=== PATIENT | female | born 2005 | race Caucasian/White ===

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

== ENCOUNTER 2023-01-09 20:45 | Emergency (ER) | payer SELFPAY ==
[2023-01-09 21:00] VITALS: BP 119/75; PULSE 79
== END 2023-01-09 22:16 | disposition home or self-care (01) ==
LOC: JP.ED 20:45
DX: M25.562 Pain in left knee (principal); Z88.0 Allergy status to penicillin; Z88.7 Allergy status to serum and vaccine; Z91.010 Allergy to peanuts; Z91.011 Allergy to milk products; Z79.899 Other long term (current) drug therapy; W22.8XXA Striking against or struck by other objects, initial encounter
CPT/HCPCS: 73562-26-LT; 73562-LT; 99283

== ENCOUNTER 2023-04-09 13:22 | Emergency (ER) | payer SELFPAY ==
[2023-04-09 15:11] VITALS: BP 116/83; PULSE 83
== END 2023-04-09 15:57 | disposition hospice, inpatient (51) ==
LOC: JP.ED 13:22
DX: Z32.02 Encounter for pregnancy test, result negative (principal); J45.909 Unspecified asthma, uncomplicated; Z88.0 Allergy status to penicillin; Z88.7 Allergy status to serum and vaccine; Z91.010 Allergy to peanuts; Z91.011 Allergy to milk products; Z91.09 Other allergy status, other than to drugs and biological substances; Z88.8 Allergy status to other drugs, medicaments and biological substances
CPT/HCPCS: 81025; 99282; 99283

== ENCOUNTER 2023-04-23 08:03 | Emergency (ER) | payer SELFPAY ==
[2023-04-23 10:03] LABS: BASOPHILS ABSOLUTE AUTO 0.09 K/uL (0.00-0.10); EOSINOPHILS ABSOLUTE AUTO 0.07 K/uL (0.00-0.40); EOSINOPHILS PERCENT AUTO 0.8 % (0.0-5.4); HEMATOCRIT 40.6 % (34.3-46.0); HEMOGLOBIN 14.6 g/dL (11.2-15.5); IMMATURE GRAN PERCENT AUTO 0.2 % (0.0-0.7); LYMPHOCYTES ABSOLUTE AUTO 0.77 K/uL (0.8-3.3); LYMPHOCYTES PERCENT AUTO 8.3 % (11.4-47.7); MEAN CORPUSCULAR HEMOGLOBIN 32.8 pg (31.6-35.5); MEAN CORPUSCULAR VOLUME 91.2 fL (81.4-99.0); MONOCYTES PERCENT AUTO 3.2 % (3.3-12.6); NEUTROPHILS ABSOLUTE AUTO 8.02 K/uL (1.0-7.6); NEUTROPHILS PERCENT AUTO 86.5 % (40.0-78.1); PLATELET COUNT,PLT 206 K/uL (130-375); RED BLOOD CELL COUNT 4.45 M/uL (3.77-5.24); WHITE BLOOD CELL COUNT,WBC 9.3 K/uL (3.2-11.0)
[2023-04-23 10:04] LABS: IMMATURE GRAN ABSOLUTE AUTO 0.02 K/uL (0.00-0.23)
[2023-04-23 10:16] VITALS: BP 104/60; PULSE 106
[2023-04-23 10:23] LABS: A/G RATIO 1.6 (1.2-2.2); ALANINE AMINOTRANSFERASE,ALT 20 U/L (12-78); ALBUMIN 4.3 g/dL (3.4-5.0); ALKALINE PHOSPHATASE 52 U/L (46-116); ANION GAP 14.5 mmol/L (5.0-14.0); ASPARTATE AMNIOTRANSFERASE,AST 17 U/L (15-37); BILIRUBIN TOTAL 1.3 mg/dL (0.2-1.0); BLOOD UREA NITROGEN,BUN 13 mg/dL (7-18); C-REACTIVE PROTEIN 0.16 mg/dL (0.0-0.3); CALCIUM 8.7 mg/dL (8.5-10.1); CARBON DIOXIDE,CO2 23 mmol/L (21-32); CHLORIDE,CL 104 mmol/L (100-108); CREATININE 0.8 mg/dL (0.6-1.0); EST CRCL DRUG DOSING (CG) 83.54 mL/min; ESTIMATED GFR 108 mL/min (>60); GLUCOSE RANDOM 73 mg/dL (74-106); POTASSIUM,K 3.7 mmol/L (3.6-5.2); SODIUM,NA 141 mmol/L (140-148)
[2023-04-23] MEDS ORDERED: Sodium Chloride 0.9% 1,000 ML IV ONE (10:59)
== END 2023-04-23 12:50 | disposition home or self-care (01) ==
LOC: JP.ED 08:03
DX: E86.0 Dehydration (principal); J45.909 Unspecified asthma, uncomplicated; Z88.0 Allergy status to penicillin; Z88.8 Allergy status to other drugs, medicaments and biological substances; Z88.7 Allergy status to serum and vaccine; Z91.010 Allergy to peanuts; Z91.011 Allergy to milk products; Z91.018 Allergy to other foods; Z79.51 Long term (current) use of inhaled steroids
CPT/HCPCS: 10060; 36415; 80053; 83605; 85025; 86140; 93005; 96360; 99285; J7030

== ENCOUNTER 2023-04-29 20:32 | Emergency (ER) | payer SELFPAY ==
[2023-04-29 20:57] VITALS: BP 112/74; PULSE 70
== END 2023-04-29 22:51 | disposition left against medical advice (07) ==
LOC: JP.ED 20:32
DX: Z53.21 Procedure and treatment not carried out due to patient leaving prior to being seen by health care provider (principal)

== ENCOUNTER 2023-06-11 17:35 | Emergency (ER) | payer SELFPAY ==
[2023-06-11] MEDS ORDERED: Ondansetron 4 MG Tab.DIS PO ONE (17:58)
[2023-06-11] MEDS ORDERED: Ibuprofen 600 MG Tab PO ONE (18:07)
[2023-06-11 18:08] LABS: BASOPHILS ABSOLUTE AUTO 0.11 K/uL (0.00-0.10); BASOPHILS PERCENT AUTO 0.9 % (0.1-1.3); EOSINOPHILS PERCENT AUTO 3.2 % (0.0-5.4); HEMATOCRIT 43.1 % (34.3-46.0); HEMOGLOBIN 15.3 g/dL (11.2-15.5); IMMATURE GRAN ABSOLUTE AUTO 0.03 K/uL (0.00-0.23); IMMATURE GRAN PERCENT AUTO 0.2 % (0.0-0.7); LYMPHOCYTES ABSOLUTE AUTO 1.79 K/uL (0.8-3.3); LYMPHOCYTES PERCENT AUTO 14.4 % (11.4-47.7); MEAN CORPUSCULAR HEMOGLOBIN 32.9 pg (31.6-35.5); MEAN CORPUSCULAR HGB CONC 35.5 g/dL (31.6-35.5); MEAN CORPUSCULAR VOLUME 92.7 fL (81.4-99.0); MONOCYTES ABSOLUTE AUTO 1.01 K/uL (0.20-0.90); MONOCYTES PERCENT AUTO 8.1 % (3.3-12.6); NEUTROPHILS ABSOLUTE AUTO 9.13 K/uL (1.0-7.6); NEUTROPHILS PERCENT AUTO 73.2 % (40.0-78.1); PLATELET COUNT,PLT 220 K/uL (130-375); RED BLOOD CELL COUNT 4.65 M/uL (3.77-5.24); WHITE BLOOD CELL COUNT,WBC 12.5 K/uL (3.2-11.0)
[2023-06-11 18:10] VITALS: BP 112/76; PULSE 104
[2023-06-11 18:20] LABS: APPEARANCE,URINE CLOUDY (CLEAR); BILIRUBIN,URINE NEGATIVE (NEGATIVE); COLOR,URINE YELLOW (YELLOW); GLUCOSE,URINE NEGATIVE (NEGATIVE); KETONES,URINE NEGATIVE (NEGATIVE); LEUKOCYTE ESTERASE,URINE SMALL (NEGATIVE); NITRITE,URINE NEGATIVE (NEGATIVE); OCCULT BLOOD,URINE LARGE (NEGATIVE); PROTEIN,URINE 100 mg/dL (NEGATIVE); UROBILINOGEN,URINE 0.2 EU/dL (0.2-1.0)
[2023-06-11 18:21] LABS: AMORPHOUS SEDIMENT,URINE NOT SEEN; BACTERIA,URINE FEW; EPITHELIAL CELLS,URINE RARE; MUCUS,URINE FEW; RBC,URINE >100 (0-5)
[2023-06-11 18:23] LABS: CALCIUM 8.4 mg/dL (8.5-10.1); CREATININE 0.7 mg/dL (0.6-1.0); EST CRCL DRUG DOSING (CG) 95.52 mL/min; POTASSIUM,K 3.5 mmol/L (3.6-5.2)
[2023-06-11 18:24] LABS: ANION GAP 11.5 mmol/L (5.0-14.0)
== END 2023-06-11 18:36 | disposition home or self-care (01) ==
LOC: JP.ED 17:35
DX: N30.01 Acute cystitis with hematuria (principal); Z88.0 Allergy status to penicillin; Z91.011 Allergy to milk products; Z91.010 Allergy to peanuts; Z88.8 Allergy status to other drugs, medicaments and biological substances; Z88.7 Allergy status to serum and vaccine; Z91.048 Other nonmedicinal substance allergy status; Z79.899 Other long term (current) drug therapy
CPT/HCPCS: 36415; 80048; 81001; 81025; 85025; 87086; 99284; Q0162

== ENCOUNTER 2023-06-21 15:42 | Emergency (ER) | payer SELFPAY ==
[2023-06-21 17:29] VITALS: BP 116/72; PULSE 102
== END 2023-06-21 17:56 | disposition home or self-care (01) ==
LOC: JP.ED 15:42
DX: K02.62 Dental caries on smooth surface penetrating into dentin (principal); Z88.0 Allergy status to penicillin; Z91.010 Allergy to peanuts; Z91.011 Allergy to milk products; Z88.7 Allergy status to serum and vaccine; Z88.8 Allergy status to other drugs, medicaments and biological substances; Z91.048 Other nonmedicinal substance allergy status; Z79.899 Other long term (current) drug therapy
CPT/HCPCS: 99282

== ENCOUNTER 2023-07-12 15:31 | Emergency (ER) | payer MEDICAID ==
[2023-07-12 15:44] VITALS: BP 114/80; PULSE 69
[2023-07-12 16:49] LABS: APPEARANCE,URINE CLOUDY (CLEAR); BILIRUBIN,URINE NEGATIVE (NEGATIVE); COLOR,URINE YELLOW (YELLOW); GLUCOSE,URINE NEGATIVE (NEGATIVE); KETONES,URINE NEGATIVE (NEGATIVE); LEUKOCYTE ESTERASE,URINE SMALL (NEGATIVE); NITRITE,URINE NEGATIVE (NEGATIVE); OCCULT BLOOD,URINE SMALL (NEGATIVE); PROTEIN,URINE 30 mg/dL (NEGATIVE); UROBILINOGEN,URINE 0.2 EU/dL (0.2-1.0)
[2023-07-12 16:57] LABS: RBC,URINE 0-5 (0-5); WBC,URINE 75-100 (0-5)
[2023-07-12 16:58] LABS: AMORPHOUS SEDIMENT,URINE RARE; BACTERIA,URINE FEW; EPITHELIAL CELLS,URINE FEW; MUCUS,URINE NOT SEEN
== END 2023-07-12 17:55 | disposition home or self-care (01) ==
LOC: JP.ED 15:31
DX: O99.891 Other specified diseases and conditions complicating pregnancy (principal); R82.71 Bacteriuria; R82.81 Pyuria; O99.511 Diseases of the respiratory system complicating pregnancy, first trimester; J45.909 Unspecified asthma, uncomplicated; Z88.0 Allergy status to penicillin; Z88.8 Allergy status to other drugs, medicaments and biological substances; Z88.7 Allergy status to serum and vaccine; Z91.010 Allergy to peanuts; Z91.018 Allergy to other foods; Z79.899 Other long term (current) drug therapy; Z3A.01 Less than 8 weeks gestation of pregnancy
CPT/HCPCS: 81001; 87086; 99284

== ENCOUNTER 2023-08-01 10:44 | Emergency (ER) | payer MEDICAID ==
[2023-08-01 11:09] VITALS: BP 132/72; PULSE 124
[2023-08-01 11:47] LABS: APPEARANCE,URINE CLOUDY (CLEAR); BILIRUBIN,URINE SMALL (NEGATIVE); COLOR,URINE YELLOW (YELLOW); GLUCOSE,URINE NEGATIVE (NEGATIVE); KETONES,URINE TRACE mg/dL (NEGATIVE); LEUKOCYTE ESTERASE,URINE SMALL (NEGATIVE); NITRITE,URINE NEGATIVE (NEGATIVE); OCCULT BLOOD,URINE NEGATIVE (NEGATIVE); PH,URINE 7.5 (5.0-8.0); PROTEIN,URINE 30 mg/dL (NEGATIVE)
[2023-08-01 11:54] LABS: RBC,URINE 0-5 (0-5); WBC,URINE 0-5 (0-5)
[2023-08-01 11:55] LABS: AMORPHOUS SEDIMENT,URINE MODERATE; BACTERIA,URINE MODERATE; EPITHELIAL CELLS,URINE MANY; MUCUS,URINE MANY
== END 2023-08-01 12:16 | disposition home or self-care (01) ==
LOC: JP.ED 10:44
DX: O99.891 Other specified diseases and conditions complicating pregnancy (principal); R31.9 Hematuria, unspecified; O99.511 Diseases of the respiratory system complicating pregnancy, first trimester; J45.909 Unspecified asthma, uncomplicated; Z79.899 Other long term (current) drug therapy; Z3A.01 Less than 8 weeks gestation of pregnancy; Z88.1 Allergy status to other antibiotic agents; Z91.010 Allergy to peanuts; Z88.7 Allergy status to serum and vaccine; Z88.8 Allergy status to other drugs, medicaments and biological substances; Z91.011 Allergy to milk products; Z88.9 Allergy status to unspecified drugs, medicaments and biological substances; Z91.018 Allergy to other foods
CPT/HCPCS: 81001; 81025; 87086; 99283

== ENCOUNTER 2023-08-16 16:50 | Emergency (ER) | payer SELFPAY ==
[2023-08-16 16:59] VITALS: BP 120/50; PULSE 111
== END 2023-08-16 18:43 | disposition home or self-care (01) ==
LOC: JP.ED 16:50
DX: H66.92 Otitis media, unspecified, left ear (principal); O21.9 Vomiting of pregnancy, unspecified; Z3A.09 9 weeks gestation of pregnancy; Z88.1 Allergy status to other antibiotic agents; Z88.8 Allergy status to other drugs, medicaments and biological substances; Z91.011 Allergy to milk products; Z91.010 Allergy to peanuts; Z91.018 Allergy to other foods
CPT/HCPCS: 99282

== ENCOUNTER 2023-11-14 16:40 | Emergency (ER) | payer MEDICAID ==
[2023-11-14 17:10] VITALS: BP 117/69; PULSE 87
[2023-11-14 17:33] LABS: BASOPHILS ABSOLUTE AUTO 0.07 K/uL (0.00-0.10); BASOPHILS PERCENT AUTO 0.6 % (0.1-1.3); EOSINOPHILS ABSOLUTE AUTO 0.87 K/uL (0.00-0.40); EOSINOPHILS PERCENT AUTO 7.3 % (0.0-5.4); HEMATOCRIT 34.6 % (34.3-46.0); HEMOGLOBIN 12.4 g/dL (11.2-15.5); IMMATURE GRAN ABSOLUTE AUTO 0.07 K/uL (0.00-0.23); IMMATURE GRAN PERCENT AUTO 0.6 % (0.0-0.7); LYMPHOCYTES ABSOLUTE AUTO 1.52 K/uL (0.8-3.3); LYMPHOCYTES PERCENT AUTO 12.7 % (11.4-47.7); MEAN CORPUSCULAR HEMOGLOBIN 33.7 pg (31.6-35.5); MEAN CORPUSCULAR HGB CONC 35.8 g/dL (31.6-35.5); MONOCYTES ABSOLUTE AUTO 0.85 K/uL (0.20-0.90); MONOCYTES PERCENT AUTO 7.1 % (3.3-12.6); NEUTROPHILS ABSOLUTE AUTO 8.56 K/uL (1.0-7.6); NEUTROPHILS PERCENT AUTO 71.7 % (40.0-78.1); PLATELET COUNT,PLT 180 K/uL (130-375); RED BLOOD CELL COUNT 3.68 M/uL (3.77-5.24); WHITE BLOOD CELL COUNT,WBC 11.9 K/uL (3.2-11.0)
[2023-11-14 18:17] LABS: CORONAVIRUS COVID-19 NAA NEGATIVE (NEGATIVE); INFLUENZA A NAA NEGATIVE (NEGATIVE); INFLUENZA B NAA NEGATIVE (NEGATIVE); RESPIRATORY SYNCYTIAL VIR NAA NEGATIVE (NEGATIVE)
[2023-11-14 18:19] LABS: ALANINE AMINOTRANSFERASE,ALT 12 U/L (12-78); ALBUMIN 3.1 g/dL (3.4-5.0); ALKALINE PHOSPHATASE 57 U/L (46-116); ANION GAP 12.5 mmol/L (5.0-14.0); ASPARTATE AMNIOTRANSFERASE,AST 13 U/L (15-37); BILIRUBIN TOTAL 0.3 mg/dL (0.2-1.0); BLOOD UREA NITROGEN,BUN 5 mg/dL (7-18); CALCIUM 8.5 mg/dL (8.5-10.1); CARBON DIOXIDE,CO2 26 mmol/L (21-32); CHLORIDE,CL 104 mmol/L (100-108); CREATININE 0.5 mg/dL (0.6-1.0); EST CRCL DRUG DOSING (CG) 151.58 mL/min; ESTIMATED GFR 138 mL/min (>60); GLUCOSE RANDOM 88 mg/dL (74-106); HCG QUANTITATIVE 13502 mIU/mL (0-6); POTASSIUM,K 3.5 mmol/L (3.6-5.2); PROTEIN TOTAL,TP 6.3 g/dL (6.4-8.2); SODIUM,NA 139 mmol/L (140-148)
[2023-11-14 19:21] LABS: APPEARANCE,URINE CLOUDY (CLEAR); BILIRUBIN,URINE NEGATIVE (NEGATIVE); COLOR,URINE YELLOW (YELLOW); GLUCOSE,URINE NEGATIVE (NEGATIVE); KETONES,URINE NEGATIVE (NEGATIVE); LEUKOCYTE ESTERASE,URINE MODERATE (NEGATIVE); NITRITE,URINE NEGATIVE (NEGATIVE); OCCULT BLOOD,URINE TRACE-INTACT (NEGATIVE); PROTEIN,URINE NEGATIVE (NEGATIVE); UROBILINOGEN,URINE 0.2 EU/dL (0.2-1.0)
[2023-11-14 19:23] LABS: AMORPHOUS SEDIMENT,URINE NOT SEEN; BACTERIA,URINE MANY; EPITHELIAL CELLS,URINE MANY; MUCUS,URINE FEW; RBC,URINE 0-5 (0-5); WBC,URINE 20-30 (0-5)
== END 2023-11-14 19:38 | disposition home or self-care (01) ==
LOC: JP.ED 16:40
DX: O23.42 Unspecified infection of urinary tract in pregnancy, second trimester (principal); N30.00 Acute cystitis without hematuria; Z88.8 Allergy status to other drugs, medicaments and biological substances; Z88.7 Allergy status to serum and vaccine; Z91.018 Allergy to other foods; Z91.048 Other nonmedicinal substance allergy status; Z3A.22 22 weeks gestation of pregnancy; Z88.0 Allergy status to penicillin; Z91.010 Allergy to peanuts; Z91.011 Allergy to milk products
CPT/HCPCS: 0241U; 36415; 76815; 80053; 81001; 83605; 83690; 84702; 85025; 99284

== ENCOUNTER 2023-11-17 18:38 | Emergency (ER) | payer MEDICAID ==
[2023-11-17 20:12] VITALS: BP 123/75; PULSE 97
== END 2023-11-17 21:35 | disposition home or self-care (01) ==
LOC: JP.ED 18:38
DX: O23.42 Unspecified infection of urinary tract in pregnancy, second trimester (principal); B96.89 Other specified bacterial agents as the cause of diseases classified elsewhere; N39.0 Urinary tract infection, site not specified; Z3A.22 22 weeks gestation of pregnancy; Z88.0 Allergy status to penicillin; Z91.010 Allergy to peanuts; Z88.7 Allergy status to serum and vaccine; Z88.8 Allergy status to other drugs, medicaments and biological substances; Z91.011 Allergy to milk products; Z91.048 Other nonmedicinal substance allergy status; Z79.899 Other long term (current) drug therapy
CPT/HCPCS: 87086; 87210; 99284

== ENCOUNTER 2023-11-25 13:30 | Emergency (ER) | payer MEDICAID ==
[2023-11-25 14:27] VITALS: BP 120/68; PULSE 107
[2023-11-25 15:00] LABS: APPEARANCE,URINE TURBID (CLEAR); BILIRUBIN,URINE NEGATIVE (NEGATIVE); COLOR,URINE YELLOW (YELLOW); GLUCOSE,URINE NEGATIVE (NEGATIVE); KETONES,URINE NEGATIVE (NEGATIVE); LEUKOCYTE ESTERASE,URINE MODERATE (NEGATIVE); NITRITE,URINE NEGATIVE (NEGATIVE); OCCULT BLOOD,URINE NEGATIVE (NEGATIVE); PROTEIN,URINE NEGATIVE (NEGATIVE)
[2023-11-25 15:05] LABS: AMORPHOUS SEDIMENT,URINE MODERATE; BACTERIA,URINE MANY; EPITHELIAL CELLS,URINE MANY; MUCUS,URINE RARE; RBC,URINE 0-5 (0-5); WBC,URINE 20-30 (0-5)
== END 2023-11-25 15:50 | disposition home or self-care (01) ==
LOC: JP.ED 13:30
DX: O23.12 Infections of bladder in pregnancy, second trimester (principal); N30.00 Acute cystitis without hematuria; Z3A.23 23 weeks gestation of pregnancy; Z86.19 Personal history of other infectious and parasitic diseases; Z88.0 Allergy status to penicillin; Z88.8 Allergy status to other drugs, medicaments and biological substances; Z88.7 Allergy status to serum and vaccine; Z91.010 Allergy to peanuts; Z91.048 Other nonmedicinal substance allergy status; Z91.011 Allergy to milk products
CPT/HCPCS: 81001; 87086; 99283; 99284

== ENCOUNTER 2023-12-19 00:33 | Emergency (ER) | payer MEDICAID ==
[2023-12-19 00:51] VITALS: BP 118/66; PULSE 105
== END 2023-12-19 01:21 | disposition home or self-care (01) ==
LOC: JP.ED 00:33
DX: O21.9 Vomiting of pregnancy, unspecified (principal); Z88.0 Allergy status to penicillin; Z88.8 Allergy status to other drugs, medicaments and biological substances; Z88.7 Allergy status to serum and vaccine; Z91.010 Allergy to peanuts; Z91.011 Allergy to milk products; Z91.048 Other nonmedicinal substance allergy status; Z79.899 Other long term (current) drug therapy; Z3A.27 27 weeks gestation of pregnancy
CPT/HCPCS: 84112; 99284

== ENCOUNTER 2024-01-06 11:59 | Emergency (ER) | payer MEDICAID ==
[2024-01-06 12:34] LABS: APPEARANCE,URINE TURBID (CLEAR); BILIRUBIN,URINE NEGATIVE (NEGATIVE); COLOR,URINE YELLOW (YELLOW); GLUCOSE,URINE NEGATIVE (NEGATIVE); KETONES,URINE NEGATIVE (NEGATIVE); LEUKOCYTE ESTERASE,URINE SMALL (NEGATIVE); NITRITE,URINE NEGATIVE (NEGATIVE); OCCULT BLOOD,URINE NEGATIVE (NEGATIVE); PH,URINE 7.5 (5.0-8.0); PROTEIN,URINE TRACE mg/dL (NEGATIVE)
[2024-01-06 12:42] LABS: AMORPHOUS SEDIMENT,URINE MANY; BACTERIA,URINE MODERATE; EPITHELIAL CELLS,URINE MANY; MUCUS,URINE MODERATE; RBC,URINE NOT SEEN (0-5); WBC,URINE 0-5 (0-5)
[2024-01-06] MEDS: Sodium Chloride 0.9% 1,000 ML IV SCH (12:57)
[2024-01-06 12:59] LABS: BASOPHILS ABSOLUTE AUTO 0.05 K/uL (0.00-0.10); BASOPHILS PERCENT AUTO 0.5 % (0.1-1.3); EOSINOPHILS ABSOLUTE AUTO 0.41 K/uL (0.00-0.40); EOSINOPHILS PERCENT AUTO 3.8 % (0.0-5.4); HEMOGLOBIN 10.5 g/dL (11.2-15.5); IMMATURE GRAN ABSOLUTE AUTO 0.14 K/uL (0.00-0.23); IMMATURE GRAN PERCENT AUTO 1.3 % (0.0-0.7); LYMPHOCYTES ABSOLUTE AUTO 1.28 K/uL (0.8-3.3); LYMPHOCYTES PERCENT AUTO 11.9 % (11.4-47.7); MEAN CORPUSCULAR HEMOGLOBIN 31.7 pg (31.6-35.5); MEAN CORPUSCULAR VOLUME 90.6 fL (81.4-99.0); MONOCYTES ABSOLUTE AUTO 0.84 K/uL (0.20-0.90); MONOCYTES PERCENT AUTO 7.8 % (3.3-12.6); NEUTROPHILS ABSOLUTE AUTO 8.06 K/uL (1.0-7.6); NEUTROPHILS PERCENT AUTO 74.7 % (40.0-78.1); PLATELET COUNT,PLT 144 K/uL (130-375); RED BLOOD CELL COUNT 3.31 M/uL (3.77-5.24); WHITE BLOOD CELL COUNT,WBC 10.8 K/uL (3.2-11.0)
[2024-01-06 13:16] LABS: PROTHROMBIN TIME 9.8 sec (9.2-10.6)
[2024-01-06 13:20] LABS: A/G RATIO 0.8 (1.2-2.2); ALANINE AMINOTRANSFERASE,ALT 14 U/L (12-78); ALBUMIN 2.7 g/dL (3.4-5.0); ALKALINE PHOSPHATASE 84 U/L (46-116); ASPARTATE AMNIOTRANSFERASE,AST 14 U/L (15-37); BILIRUBIN TOTAL 0.5 mg/dL (0.2-1.0); BLOOD UREA NITROGEN,BUN 5 mg/dL (7-18); CALCIUM 8.2 mg/dL (8.5-10.1); CARBON DIOXIDE,CO2 25 mmol/L (21-32); CHLORIDE,CL 106 mmol/L (100-108); CREATININE 0.4 mg/dL (0.6-1.0); EST CRCL DRUG DOSING (CG) 210.02 mL/min; ESTIMATED GFR 145 mL/min (>60); GLUCOSE RANDOM 87 mg/dL (74-106); POTASSIUM,K 3.1 mmol/L (3.6-5.2); SODIUM,NA 140 mmol/L (140-148)
[2024-01-06 13:21] LABS: ANION GAP 12.1 mmol/L (5.0-14.0)
[2024-01-06] MEDS: Potassium Chloride 20 MEQ Tab.ER PO ONE (14:19)
[2024-01-06 14:58] VITALS: BP 109/73; PULSE 97
== END 2024-01-06 15:25 ==
LOC: JP.ED 11:59
DX: O36.8130 Decreased fetal movements, third trimester, not applicable or unspecified (principal); J45.909 Unspecified asthma, uncomplicated; Z88.0 Allergy status to penicillin; Z91.040 Latex allergy status; Z91.011 Allergy to milk products; Z88.7 Allergy status to serum and vaccine; Z91.010 Allergy to peanuts; Z91.048 Other nonmedicinal substance allergy status; Z88.8 Allergy status to other drugs, medicaments and biological substances; Z79.899 Other long term (current) drug therapy; Z3A.30 30 weeks gestation of pregnancy; Z79.01 Long term (current) use of anticoagulants
CPT/HCPCS: 36415; 80053; 81001; 85025; 85610; 96360; 99284-25; 99285; A9270-GY; J7030

== ENCOUNTER 2024-02-22 23:45 | Emergency (ER) | payer MEDICAID ==
[2024-02-22 23:50] VITALS: BP 117/65; PULSE 115
== END 2024-02-23 00:54 | disposition home or self-care (01) ==
LOC: JP.ED 23:45
DX: O26.893 Other specified pregnancy related conditions, third trimester (principal); R10.2 Pelvic and perineal pain; J45.909 Unspecified asthma, uncomplicated; Z88.0 Allergy status to penicillin; Z91.018 Allergy to other foods; Z91.048 Other nonmedicinal substance allergy status; Z3A.37 37 weeks gestation of pregnancy
CPT/HCPCS: 99283

== ENCOUNTER 2024-03-03 01:45 | Emergency (ER) | payer MEDICAID ==
[2024-03-03] MEDS: fentaNYL 50 MCG/ML SDV IVPUSH ONE (02:09)
[2024-03-03] MEDS: Ondansetron 4 MG/2 ML SDV IVPUSH ONE (02:09)
[2024-03-03 07:09] VITALS: BP 103/57; PULSE 93
== END 2024-03-03 07:41 | disposition other institution (70) ==
LOC: JP.ED 01:45 → UNDOADMOB 02:14 → JP.OB 02:14 → UNDODISOB 07:50
DX: O80 Encounter for full-term uncomplicated delivery (principal); Z3A.38 38 weeks gestation of pregnancy; Z37.0 Single live birth; Z88.0 Allergy status to penicillin; Z88.7 Allergy status to serum and vaccine; Z88.8 Allergy status to other drugs, medicaments and biological substances; Z91.010 Allergy to peanuts; Z91.011 Allergy to milk products; Z91.018 Allergy to other foods; Z79.899 Other long term (current) drug therapy
CPT/HCPCS: 96374; 96375; 99284; J2405; J3010

== ENCOUNTER 2024-08-24 13:33 | Emergency (ER) | payer MEDICAID ==
[2024-08-24 13:49] VITALS: BP 110/65; PULSE 120
[2024-08-24 14:01] LABS: APPEARANCE,URINE TURBID (CLEAR); BILIRUBIN,URINE SMALL (NEGATIVE); COLOR,URINE BROWN (YELLOW); GLUCOSE,URINE 100 mg/dL (NEGATIVE); KETONES,URINE TRACE mg/dL (NEGATIVE); LEUKOCYTE ESTERASE,URINE LARGE (NEGATIVE); NITRITE,URINE NEGATIVE (NEGATIVE); OCCULT BLOOD,URINE LARGE (NEGATIVE); PH,URINE 6.5 (5.0-8.0); PROTEIN,URINE >=300 mg/dL (NEGATIVE)
[2024-08-24 14:22] LABS: EPITHELIAL CELLS,URINE RARE; RBC,URINE 40-50 (0-5); WBC,URINE 50-75 (0-5)
[2024-08-24 14:23] LABS: AMORPHOUS SEDIMENT,URINE NOT SEEN; BACTERIA,URINE MANY; MUCUS,URINE FEW
== END 2024-08-24 14:52 | disposition home or self-care (01) ==
LOC: JP.ED 13:33
DX: O23.11 Infections of bladder in pregnancy, first trimester (principal); R31.9 Hematuria, unspecified; Z90.89 Acquired absence of other organs; Z88.1 Allergy status to other antibiotic agents; Z88.0 Allergy status to penicillin; Z88.7 Allergy status to serum and vaccine; Z88.8 Allergy status to other drugs, medicaments and biological substances; Z91.010 Allergy to peanuts; Z91.018 Allergy to other foods; Z79.899 Other long term (current) drug therapy; Z3A.01 Less than 8 weeks gestation of pregnancy
CPT/HCPCS: 81001; 87086; 99283

== ENCOUNTER 2024-10-14 02:26 | Emergency (ER) | payer MEDICAID ==
[2024-10-14 03:09] LABS: BASOPHILS ABSOLUTE AUTO 0.06 K/uL (0.00-0.10); BASOPHILS PERCENT AUTO 0.3 % (0.1-1.3); EOSINOPHILS ABSOLUTE AUTO 0.12 K/uL (0.00-0.40); EOSINOPHILS PERCENT AUTO 0.6 % (0.0-5.4); HEMATOCRIT 34.6 % (34.3-46.0); HEMOGLOBIN 12.2 g/dL (11.2-15.5); IMMATURE GRAN ABSOLUTE AUTO 0.11 K/uL (0.00-0.23); IMMATURE GRAN PERCENT AUTO 0.5 % (0.0-0.7); LYMPHOCYTES ABSOLUTE AUTO 1.71 K/uL (0.8-3.3); MEAN CORPUSCULAR HEMOGLOBIN 31.9 pg (31.6-35.5); MEAN CORPUSCULAR HGB CONC 35.3 g/dL (31.6-35.5); MEAN CORPUSCULAR VOLUME 90.3 fL (81.4-99.0); MONOCYTES ABSOLUTE AUTO 1.62 K/uL (0.20-0.90); MONOCYTES PERCENT AUTO 7.6 % (3.3-12.6); NEUTROPHILS ABSOLUTE AUTO 17.77 K/uL (1.0-7.6); PLATELET COUNT,PLT 200 K/uL (130-375); RED BLOOD CELL COUNT 3.83 M/uL (3.77-5.24); WHITE BLOOD CELL COUNT,WBC 21.4 K/uL (3.2-11.0)
[2024-10-14] MEDS ORDERED: Naloxone 0.4 MG/ML SDV IVPUSH PRN (03:16)
[2024-10-14] MEDS: fentaNYL 50 MCG/ML SDV IVPUSH ONE ×2 (03:20→04:07)
[2024-10-14 03:25] LABS: CALCIUM 8.3 mg/dL (8.5-10.1); CREATININE 0.5 mg/dL (0.6-1.0); EST CRCL DRUG DOSING (CG) 145.26 mL/min; POTASSIUM,K 3.1 mmol/L (3.6-5.2)
[2024-10-14 03:26] LABS: ANION GAP 14.1 mmol/L (5.0-14.0)
[2024-10-14] MEDS: Sodium Chloride 0.9% 1,000 ML IV ONE (03:37)
[2024-10-14] MEDS ORDERED: Misoprostol 100 MCG Tab RECTAL ONE (03:39)
[2024-10-14] MEDS: Misoprostol 200 MCG Tab RECTAL ONE (04:12)
[2024-10-14] MEDS ORDERED: Potassium Chloride 20 MEQ Tab.ER PO ONE (04:27)
[2024-10-14] MEDS: HYDROmorphone 0.5 MG/0.5 ML Syringe IVPUSH ONE (05:07)
[2024-10-14] MEDS: Potassium Chloride 10% 20 MEQ/15 ML Soln 15 ML UD Cup PO ONE (05:11)
[2024-10-14] MEDS: Sodium Chloride 0.9% 1,000 ML IV SCH (05:40)
[2024-10-14 06:43] VITALS: BP 123/69; PULSE 115
== END 2024-10-14 06:55 | disposition other institution (70) ==
LOC: JP.ED 02:26
DX: O46.92 Antepartum hemorrhage, unspecified, second trimester (principal); O60.12X0 Preterm labor second trimester with preterm delivery second trimester, not applicable or unspecified; Z88.1 Allergy status to other antibiotic agents; Z88.7 Allergy status to serum and vaccine; Z88.8 Allergy status to other drugs, medicaments and biological substances; Z91.010 Allergy to peanuts; Z91.018 Allergy to other foods; Z79.899 Other long term (current) drug therapy; Z3A.19 19 weeks gestation of pregnancy
CPT/HCPCS: 36415; 36430; 80048; 84112; 85025; 86850; 86900; 86901; 86920; 86922; 96361; 96374; 96375; 96376; 99284; 99285-25; A9270-GY; J3010; P9016

== ENCOUNTER 2025-02-24 06:13 | Emergency (ER) | payer MEDICAID ==
[2025-02-24 06:22] VITALS: BP 116/78; PULSE 86
== END 2025-02-24 06:44 | disposition home or self-care (01) ==
LOC: JP.ED 06:13
DX: K08.89 Other specified disorders of teeth and supporting structures (principal); F17.210 Nicotine dependence, cigarettes, uncomplicated; Z79.899 Other long term (current) drug therapy; Z91.048 Other nonmedicinal substance allergy status; Z91.011 Allergy to milk products; Z88.0 Allergy status to penicillin; Z88.8 Allergy status to other drugs, medicaments and biological substances; Z88.7 Allergy status to serum and vaccine; Z91.010 Allergy to peanuts
CPT/HCPCS: 99283

== ENCOUNTER 2025-04-25 07:24 | Emergency (ER) | payer MEDICAID ==
[2025-04-25 08:51] VITALS: BP 109/77; PULSE 91
== END 2025-04-25 08:51 | disposition home or self-care (01) ==
LOC: JP.ED 07:24
DX: R10.2 Pelvic and perineal pain (principal); Z97.5 Presence of (intrauterine) contraceptive device; F17.210 Nicotine dependence, cigarettes, uncomplicated; Z88.0 Allergy status to penicillin; Z88.7 Allergy status to serum and vaccine; Z91.010 Allergy to peanuts; Z91.011 Allergy to milk products; Z88.8 Allergy status to other drugs, medicaments and biological substances
CPT/HCPCS: 99283

== ENCOUNTER 2025-06-12 09:34 | Emergency (ER) | payer MEDICARE, MEDICAID ==
[2025-06-12 10:05] VITALS: BP 125/88; PULSE 109
[2025-06-12] MEDS: Bacitracin Oint 1 GM U/D Packet TOP ONE (12:00)
== END 2025-06-12 12:01 | disposition home or self-care (01) ==
LOC: JP.ED 09:34
DX: S80.212A Abrasion, left knee, initial encounter (principal); S60.512A Abrasion of left hand, initial encounter; J45.909 Unspecified asthma, uncomplicated; Z88.0 Allergy status to penicillin; Z88.7 Allergy status to serum and vaccine; Z88.8 Allergy status to other drugs, medicaments and biological substances; Z79.899 Other long term (current) drug therapy; V00.841A Fall from standing electric scooter, initial encounter
CPT/HCPCS: 73130-26-LT; 73130-LT; 73562-26-LT; 73562-LT; 99284